=== PATIENT | male | born 1990 | race Caucasian/White ===

== ENCOUNTER → 2019-02-14 | Outpatient (CLI) | payer SELFPAY ==
[~2019-02-14] MED LIST: CRUT1EAC7 MC; DIVA250T2; MELA1TAB9; NAPR-1071 PO
--- NOTE | 2019-02-14 16:49 | Diagnostic Imaging Report ---
INDICATION: Left hand injury, pain. COMPARISON: None. FINDINGS: Three views of the left hand demonstrate age-indeterminate fracture of the scaphoid. No additional fracture deformity is seen. There is no foreign body. Articular surfaces are normal. IMPRESSION: Age-indeterminate scaphoid fracture without displacement. Dictated by: Dictated on workstation # [id number]
== END ==
LOC: RAD FS 16:22
PROVIDERS: ATTEND Family Medicine
DX: S62.002A Unspecified fracture of navicular [scaphoid] bone of left wrist, initial encounter for closed fracture (principal)
CPT/HCPCS: 73130

== ENCOUNTER 2019-02-24 21:36 | Emergency (ER) | payer SELFPAY ==
[~2019-02-24] VITALS: Ht 175.3 cm; Wt 99.8 kg
[2019-02-24 22:05] VITALS: BP 144/88
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
== END 2019-02-24 22:05 | disposition home or self-care (01) ==
LOC: EDUNIT# 21:36 → ER FS 21:37
DX: S60.211A Contusion of right wrist, initial encounter (principal); J45.909 Unspecified asthma, uncomplicated; F31.9 Bipolar disorder, unspecified; Z88.5 Allergy status to narcotic agent; Z88.8 Allergy status to other drugs, medicaments and biological substances; Y30.XXXA Falling, jumping or pushed from a high place, undetermined intent, initial encounter; Y93.39 Activity, other involving climbing, rappelling and jumping off
CPT/HCPCS: 73110

== ENCOUNTER 2021-04-10 20:14 | Emergency (ER) | payer SELFPAY ==
[~2021-04-10] VITALS: Ht 183 cm; Wt 102.0 kg
[2021-04-10 20:22] VITALS: BP 161/102
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
== END 2021-04-10 21:06 | disposition home or self-care (01) ==
LOC: EDUNIT# 20:14 → ER FS 20:18
DX: S61.230A Puncture wound without foreign body of right index finger without damage to nail, initial encounter (principal); J45.909 Unspecified asthma, uncomplicated; X58.XXXA Exposure to other specified factors, initial encounter
CPT/HCPCS: 73140

== ENCOUNTER 2022-02-10 11:42 | Emergency (ER) | payer OTHER ==
[2022-02-10] MEDS ORDERED: IBUPROFEN 800 MG (MOTRIN) TAB PO STA (11:59)
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
[2022-02-10] MEDS ORDERED: OXYC1TAB11 PO (12:51)
[2022-02-10] MEDS ORDERED: CYCL10TA25 PO (12:51)
[2022-02-10 12:59] VITALS: BP 145/68
== END 2022-02-10 12:57 | disposition home or self-care (01) ==
LOC: EDUNIT# 11:42 → ER FS 11:43
DX: S60.222A Contusion of left hand, initial encounter (principal); M54.50 Low back pain, unspecified; F17.210 Nicotine dependence, cigarettes, uncomplicated; Z87.81 Personal history of (healed) traumatic fracture; V49.40XA Driver injured in collision with unspecified motor vehicles in traffic accident, initial encounter
CPT/HCPCS: 72131; 73130

== ENCOUNTER 2022-06-30 17:19 | Emergency (ER) | payer OTHER ==
[~2022-06-30] VITALS: Ht 182 cm; Wt 98.7 kg
[~2022-06-30 17:19] MED LIST changes: +CYCL10TA25 PO; +OXYC1TAB11 PO
[2022-06-30] MEDS ORDERED: KETOROLAC 30 MG/ML VIAL IM ONE (17:30)
[2022-06-30] MEDS ORDERED: ORPHENADRINE 60 MG/2 ML (NORFLEX) AMP (ED ONLY) IM ONE (17:30)
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
--- NOTE | 2022-06-30 17:54 | Diagnostic Imaging Report ---
EXAMINATION: Chest, two views. HISTORY: Chest pain. COMPARISON: None available. FINDINGS: The lungs are clear without edema or pneumonia. No pleural effusion or pneumothorax. Heart size is normal. IMPRESSION: 1. Clear lungs. Dictated by: Dictated on workstation # [id number]
[2022-06-30 17:58] VITALS: BP 168/101
[2022-06-30] MEDS ORDERED: LIDO700A45 TP (17:58)
== END 2022-06-30 18:00 | disposition home or self-care (01) ==
LOC: EDUNIT# 17:19 → ER FS 17:21
DX: R07.89 Other chest pain (principal); F17.210 Nicotine dependence, cigarettes, uncomplicated; Z28.310 Unvaccinated for COVID-19
CPT/HCPCS: 71046; 93005

== ENCOUNTER 2022-07-28 17:15 | Emergency (ER) | payer SELFPAY ==
[~2022-07-28] VITALS: Ht 182.9 cm; Wt 87.3 kg
[~2022-07-28 17:15] MED LIST changes: +LIDO700A45 TP
[2022-07-28 17:18] VITALS: BP 170/116
[2022-07-28] MEDS ORDERED: KETOROLAC 30 MG/ML VIAL IM STA (17:30)
[2022-07-28] MEDS ORDERED: ORPHENADRINE 60 MG/2 ML (NORFLEX) AMP (ED ONLY) IM STA (17:30)
[2022-07-28] MEDS ORDERED: CYCL10TA25 PO (17:37)
[2022-07-28] MEDS ORDERED: NAPR-1071 PO (17:37)
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
== END 2022-07-28 17:41 | disposition home or self-care (01) ==
LOC: EDUNIT# 17:15 → ER FS 17:16
DX: R07.81 Pleurodynia (principal); Z28.310 Unvaccinated for COVID-19
CPT/HCPCS: 99284

== ENCOUNTER 2023-08-09 20:40 | Emergency (ER) | payer SELFPAY ==
[~2023-08-09] VITALS: Ht 182.8 cm; Wt 95.7 kg
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
[2023-08-09] MEDS ORDERED: KETOROLAC INJ 30 MG/ML VIAL IM ONE (21:00)
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
[2023-08-09 21:55] VITALS: BP 170/97
[2023-08-09] MEDS ORDERED: TIZA-169 PO (22:05)
== END 2023-08-09 21:55 | disposition home or self-care (01) ==
LOC: EDUNIT# 20:40 → ER FS 20:43
DX: S29.011A Strain of muscle and tendon of front wall of thorax, initial encounter (principal); X58.XXXA Exposure to other specified factors, initial encounter
CPT/HCPCS: 71111; 87636